=== PATIENT | male | born 1980 | race Caucasian/White ===

== ENCOUNTER 2024-04-14 07:16 | Day surgery (SDC) | payer BC, MEDICARE ==
[2024-04-14] MEDS: Ringers Lactate 1,000 ML IV ONE (07:53)
[2024-04-14] MEDS ORDERED: LIDOCAINE 2% MPF 5 ML VIAL ONE (09:30)
[2024-04-14] MEDS ORDERED: MIDAZOLAM HCL 2 MG/2 ML INJ ONE (09:30)
[2024-04-14] MEDS ORDERED: ONDANSETRON 4 MG/2 ML VIAL ONE (09:30)
[2024-04-14] MEDS ORDERED: FENTANYL CITR 100 MCG/2 ML ONE ×2 (09:30→10:17)
[2024-04-14] MEDS ORDERED: propofoL 200 MG/20 ML VIAL IV ONE ×2 (09:30→10:17)
[2024-04-14] MEDS ORDERED: FAMOTIDINE 20 MG/2 ML VIAL IV ONE (09:41)
[2024-04-14] MEDS: CEFAZOLIN SODIUM 2 GM/VIAL ONE (10:31)
[2024-04-14] MEDS: BUPIVACAINE 0.5% PF 10 ML VIAL ONE (10:41)
[2024-04-14] MEDS ORDERED: dexAMETHasone 4 MG/ML VIAL ONE ×2 (10:54→11:48)
[2024-04-14] MEDS ORDERED: MORPHINE 10 MG/ML VIAL ONE (11:00)
[2024-04-14] MEDS: HYDROMORPHONE HCL 1 MG/ML INJ ONE (12:20)
[2024-04-14] MEDS: FENTANYL CITR 100 MCG/2 ML ONE (12:30)
[2024-04-14 12:56] VITALS: O2SAT 96
[2024-04-14 13:14] VITALS: BP 154/91; TEMP 97.9
[2024-04-14] MEDS ORDERED: HYDROCODONE/APAP 5/325 MG TAB ONE (13:20)
[2024-04-14] MEDS: HYDROCODONE/APAP 5/325 MG TAB PO PRN (13:26)
--- NOTE | 2024-04-14 22:52 | OP ---
Surgeon: GINA RISO Preoperative Diagnosis: Left testicular mass. Postoperative Diagnosis: Left testicular mass. Principal Procedure: Radical left inguinal orchiectomy. Indication For Procedure: Mr. Sterling is a 44-year-old gentleman, who presented [facility] ago with a large left testicular mass, essentially replacing the entirety of the testis and m easuring 8.4 x 5.3 x 5.7 cm in volume. The epididymis was not visible on ultrasound due to the size of the mass. He was counseled on the likelihood that this represented a germ cell tumor and recommen ded for radical orchiectomy. Preoperative tumor markers were sent and only the LDH returned preopera tively and was elevated at 422, which was between 1.5 and 2 times normal. AFP and beta-HCG were pend ing. CT of the abdomen and pelvis was negative. Chest x-ray was also benign. Procedure In Detail: The patient was consented in the preoperative holding area before being transfe rred to the operative suite where general anesthesia was induced. He was given Ancef 2 g IV antimicr obial prophylaxis, and pneumo boots were provided for DVT prophylaxis. He was placed supine on the o perative table, padded and secured appropriately. His left lower pelvic and inguinal region extendin g down into the left hemiscrotum were shaved before being prepped including the scrotum using Betadin e and draped in standard fashion. A Leta's line incision was delineated across the region of the e xternal inguinal ring which was palpable, and the size of the incision was made anticipating removal of the very large mass approximately 5 to 6 cm in length. Marcaine 0.5% was instilled subcutaneously in the region of the incision, and then using a 15 blade, I incised the skin and dermal tissues befo re using electrocautery to divide the subcutaneous tissues and fat down to the level of Jorge Luis's fasc ia. I then utilized a right angle clamp to delineate and divide Jorge Luis's fascia sharply before appro aching the fat beneath and dividing it in order to visualize the fascia of the inguinal ligament and ultimately identify the cord structures. I immediately bluntly dissected around the cord structures and delivered the entirety of the cord into the incision opening using my finger before encircling th e cord with a Pascual drain that was wrapped around it in order to provide a tourniquet vascular occl usion of the testicle cord structures. Once this was performed, a Shauna clamp was used to hold it ti ght and then I delivered the testis from within the scrotum by dissecting around the para tunics tiss ues releasing them sharply using electrocautery until the testis was delivered into the inguinal charlie on. I then delivered the testis through the incision with some difficulty as it was larger than the incision made, but I was able with manipulation to express and deliver the testis through the incisio n with the tunics intact. This was then placed into a blue towel, and I then the testis an d its tunics from the scrotal tissues by dividing the gubernaculum sharply and using electrocautery. Hemostasis was provided using pinpoint electrocautery along the remainder of the scrotal skin and th at was irrigated before the scrotum was returned back out of the inguinal region. I then continued t o dissect along the cord structures until I reached the external inguinal ring. At this point, I div ided the shelving edge of the external inguinal ring and utilized a 2-0 Vicryl suture to camilla each of the divided edges. I then continued to dissect the cord structures all the way until I was able to visualize the cord entering the internal inguinal ring and the internal oblique musculature. At this point, I then applied a right angle clamp at the level of the internal oblique musculature clamping across the entirety of the cord structures, but before this, I the vas deferens from the re mainder of the cord structures and tied it using 2-0 silk suture dividing it. I then used 0 silk tie suture to suture beneath the clamped cord structures and performed a suture ligature of the cord str ucture. Once this was performed, I then placed a second freehand tie using the 0 silk suture beneath the stick-tie suture in order to ligate the cord structures a second time. I then divided the cord structures above the right angle clamp placed, releasing it and the testis and its tunics which were then placed into a bucket and delivered for pathologic analysis. At this point, I removed the right angle clamp and assessed for any sign of bleeding from the ligated cord structures, and no bleeding w as noted. As a result, the silk sutures were cut leaving a 1 to 1.5 cm tag, and the remaining portio n of the cord structures were displaced and delivered into the abdominal cavity. Copious irrigation was then applied and then I began to reapproximate the shelving edge of the inguinal ligament suturin g the entirety of the remainder of the external oblique aponeurosis fascia using the 2-0 Vicryl sutur e in a running fashion. Again, copious irrigation was applied and the subcutaneous tissues were also irrigated. I then closed the subcutaneous tissues and the Jorge Luis's layer using 3-0 Vicryl suture in a running fashion before the skin was sutured using 4-0 Monocryl. Dermabond was used to seal the sk in after again irrigation was applied during multiple phases of the closing. Of note: There was an issue with the ventilation system in the operating room throughout the entiret y of the case, but particularly notable during the mid and latter portion of the case that resulted i n excessively high humidity temperatures in the room, peaking at 99% humidity with the temperature on the thermometer documenting 76 degrees inside the room because of the lack of ventilation. As a res ult, there was concern about the increased risk of infection; so, I was extra careful about copious r epeated irrigations at each step along the process of wound closure. Ultimately, the patient was awakened from general anesthesia before being transferred to a stretcher. He was then transferred to the recovery room in good condition. Complications: No surgical complications other than the ventilation problems, which may increase the risk of the wound infection. Discharge Disposition: Subsequent followup should be established in about 1 to 2 weeks' time to revi ew the results of the pathology of the specimen. Since his LDH was elevated, he will require repeat blood work to reassess at least the LDH for resolution of that elevation post orchidectomy. We will note if the AFP and beta-HCG might also be elevated and retest for resolution of the elevated tumor elan ramirez based on their half lives as well. WR/MODL Voice ID: [id number] Report ID: [id number]
--- NOTE | 2024-04-17 17:10 | EKG ---
Test Date: 2024-04-14 Test Time: 08:09:48 Endorsement Clerk: LATOYA MEASUREMENT RESULTS: Intervals: Rate: 78 ME: 158 QRSD: 110 QT: 388 QTc: 442 Ona: P: 56 ME: 158 QRS: 96 T: 78 INTERPRETIVE STATEMENTS: Sinus rhythm with premature atrial complexes Rightward axis Borderline ECG No previous ECG available for comparison Electronically Signed On 04-17-24 17:00:05 CDT by Parth Doran
== END 2024-04-14 14:32 | disposition home or self-care (01) ==
LOC: OR 07:16
PROVIDERS: ADMIT Urology; ATTEND Urology
PROC: 0VBB0ZZ Excision of Left Testis, Open Approach (ICD-10-PCS; principal; 2024-04-14 09:30)
DX: C62.92 Malignant neoplasm of left testis, unspecified whether descended or undescended (principal)
CPT/HCPCS: 88309; 93005; J1100; J1170; J2001; J2250; J2405; J2704; J3010; J7120